=== PATIENT | female | born 1970 | race Caucasian/White ===

== ENCOUNTER 2020-10-03 07:40 | Emergency (ER) | payer SELFPAY ==
[2020-10-03] VITALS (24 sets, daily range): BP systolic 157–216; BP diastolic 81–114; PULSE 66–91; RESP 12–24; TEMP 36.7; O2SAT 95–99
--- NOTE | 2020-10-03 07:30 | RT.EKG_ITS ---
APPROVED REPORT Exam: Resting ECG Patient Location: E HR:86 bpm ECG Measurements Heart Rate 86 AXIS ID 122 P 43 QRSd 92 QRS 21 QT 409 T 39 QTc 490 Conclusion Sinus rhythm normal P axis, V-rate 86. Intraventricular conduction delay inferior leads, non specific t wave changes v6, new vs comparison
--- NOTE | 2020-10-03 07:54 | W.ED.GENAD ---
Discharge Plan Disposition Patient Disposition: HOME Condition: Fair Discharge Details Clinical Impression: Hypertension, Obesity, Stress Primary Care Provider: Unknown,Unknown ED Provider: Regina Rouse Home Meds and New Rx's Prescriptions: New lisinopril 5 mg tablet 5 mg PO DAILY Qty: 30 RF: 0 Continued Mirena 1 EACH intrauterine device 1 ea IU DIRECTED Qty: 1 RF: 0 Discontinued Truvy 1 tab PO BID RF: 0 Discharge Instructions Instructions: How to Stop Smoking (ED), Low Fat Diet (ED), Hypertension (ED) Additional Instructions: Your imaging and blood work was reassuring here today. However, I am quite concerned about your blood pressure. Please begin the lisinopril as prescribed. You are given your one-time dosing here today. Next dose will be due tomorrow morning. Attached is a coupon for lisinopril. I have requested that care management reach out to you to help you establish a primary care provider, insurance and counseling. Please encourage weight loss and smoking cessation. If you develop shortness of breath, difficulty breathing, chest pain, fevers or other new/worsening symptoms please seek care urgently once again. Medical Decision Making Patient is a pleasant 49-year-old female presenting today with 3 months of generally not feeling well. She reports a multitude of complaints. She reports her initial complaint was pain in the posterior left calf. This is improved. She also reports tightness in her chest that is not constantly exertional but more stress related. She does report a large amount of social stressors currently. States that with the onset of stress that she can also experience some numbness in her lips and fingers bilaterally. She is denying any headache. No visual changes. 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 On exam, ronal is morbidly obese. She appears sad and anxious. She has an intact neurologic exam. She has a normal cardiac and respiratory exam. No lower extremity edema or calf tenderness. I am concerned for PE based on patient's history, risk factors and tachycardia. She is a smoker, morbidly obese and hypertensive. She states the HTN is long standing but that she has not had this addressed as she has not seen a PCP in years. I do not see evidence to suggest stroke, her history and exam are not suggestive of posterior CVA. The numbness sounds to be more stress driven, she states it comes on when upset at home and not with exertion. This is most consistent with stress/anxiety. She has xanthelasma but has had cream in her coffee, unable to check cholesterol. BGL WNL. Reviewed information on her weight loss pill, primarily caffeine. I advised she stop this. ECG reviewed by Dr. Randall. NSR, rate of 86. Nonspecific T wave changes in V6 but no acute evidence of ischemia. Labs reviewed, no acute abnormality. Her potassium is slightly low at 3.4. Normal kidney function. FINDINGS: Pulmonary arteries: No evidence of pulmonary embolus to the segmental level. Aorta: No aneurysm of the aorta. No dissection of the aorta. Lungs: Bulla in right middle lobe Pleural space: Unremarkable. No pneumothorax. No pleural effusion. Heart: Unremarkable. No cardiomegaly. No pericardial effusion. Lymph nodes: Unremarkable. No enlarged lymph nodes. Bones/joints: Unremarkable. No acute fracture. Soft tissues: Unremarkable. IMPRESSION: 1. No evidence of pulmonary embolus to the segmental level. 2. No aneurysm of the aorta. 3. No dissection of the aorta. Discussed these findings withasim reilly. Will begin her on low dose Lisinopril as she has long standing HTN. She needs assistance with PCP and insurance. She would also benefit from and is agreeable to counseling. Enoucraged weight loss and smoking cessation. Information on both given to the patient. Advised on safer weight loss options. She was given strict return precautions. She and I discussed health maintenance and my concerns at length. All of her quesitons and concerns were addressed, she is in agreement with this plan. HPI General Mode of arrival: ambulatory. Date/Time Provider Initiated Documentation: 10/03/20 07:54. Limitations to Documentation: no limitations. Information obtained by: patient and RN notes reviewed. HPI Narrative: Patient is a pleasant 49 year old female presenting today with 3 months of not feeling right. She states that her symptoms began with left calf tenderness. She states that she has had a progression of lightheadedness, chest tightness, fatigue. She denies chest pain. Reports exertional SOB but states that this is chronic and unchanged from onset since onset. She reports that one month ago she began a weight loss pill that is all natural, Truvy. She states she can experience nausea with her dizziness. Describes her dizziness as lightheadedness that is near pre-syncope. Has not had a syncopal episode. States worse with stress. Reports she has had increased stress recently. REports that she does not have health insurance. Reports [facility], several months ago her SBP was >200. Denies WINN. She is currently endorsing numb Related Data Home Medications Medication Instructions Recorded Confirmed Mirena 1 ea IU DIRECTED #1 12/13/16 10/03/20 lisinopril 5 mg PO DAILY #30 tab 10/03/20 Previous Rx's Medication Instructions Recorded lisinopril 5 mg PO DAILY #30 tab 10/03/20 Allergies Allergy/AdvReac Type Severity Reaction Status Date / Time amoxicillin AdvReac Mild N/V Unverified 10/03/20 07:50 doxycycline AdvReac Mild N/V Unverified 10/03/20 07:50 General Stated Complaint: GenMedical JOSH: 2 Review of Systems Constitutional Constitutional: Reports as per HPI, Denies chills, Reports fatigue, Denies fever(s), Denies frequent falls, Denies headache(s), Denies snoring and Denies weakness Eyes Eyes: Reports as per HPI, Denies blurry vision and Denies change in vision ENT Ears, Nose, Mouth, and Throat: Denies vertigo, Denies headache(s) and Denies neck pain Cardiovascular Cardiovascular: Reports as per HPI, Denies chest pain (denies pain but reports tightness with stress), Reports lightheadedness, Denies radiating jaw, neck or arm pain, Denies dyspnea and Reports dyspnea on exertion (reports chronic and unchanged) Respiratory Respiratory: Reports as per HPI, Denies chest congestion, Denies cough, Denies dyspnea, Reports dyspnea on exertion (reports chronic and unchanged), Denies snoring, Denies stridor and Denies wheezing Gastrointestinal Gastrointestinal: Reports as per HPI, Denies abdominal pain, Denies change in bowel habits, Denies nausea and Denies vomiting Musculoskeletal Musculoskeletal: Reports as per HPI, Denies back pain, Denies myalgias, Denies muscle cramps, Denies neck pain and Denies numbness Integumentary/Breasts Skin/Breast: Reports as per HPI and Denies rash Neurologic Neurologic: Reports as per HPI, Denies abnormal movements, Denies abnormal speech, Denies behavioral changes, Denies confusion, Denies vertigo, Denies frequent falls, Denies headache(s), Denies localized weakness, Denies numbness, Denies sensory deficit and Denies weakness Psychiatric Psychiatric: Denies behavioral changes and Denies confusion Endocrine Endocrine: Reports fatigue Allergic/Immunologic Allergic/Immunologic: Denies wheezing [facility] Medical History (Updated 10/03/20 @ 10:21 by CLOTILDE Hood) Obesity Rectovaginal fistula Surgical History section Social History Smoking/Tobacco Use Status: Current every day Smoking risk assessment performed?: Yes Alcohol Intake: current Alcohol Intake frequency: holidays/special occasions only Drug use: Never Do you feel safe at home: Yes Do you feel safe in your relationship?: Yes Exam Const General: cooperative, comfortable, no acute distress, well developed and well groomed Nutritional Appearance: well nourished and obese morbidly obese Orientation: alert, awake and oriented x3 HENMT Head: normal to inspection, no palpable skull fracture, normocephalic and atraumatic Ears: hearing grossly normal bilaterally, external ears normal and TM's normal bilaterally General nose exam: external nose normal Mouth: oral mucosae normal and moist mucous membranes Throat: posterior oropharynx normal Eyes General: appearance normal, both eyes and all related structures Alignment and Position: alignment normal Periorbital: periorbital findings normal Eyelids: eyelids normal Sclera: sclerae normal Cornea: corneas normal Pupils: PERRL EOM: EOM intact bilaterally Neck Neck: normal visual inspection, full ROM and no lymphadenopathy Resp Effort & Inspection: normal respiratory effort, able to speak in complete sentences and no respiratory distress Auscultation: clear to auscultation bilaterally, no rales, no rhonchi and no wheezes Cardio Rate: regular rate Rhythm: regular rhythm Heart Sounds: S1 normal and S2 normal GI Inspection: normal to inspection, non-distended and obesity Palpation: soft, no hepatosplenomegaly, not firm, no guarding, not rigid and nontender Percussion: normal to percussion Auscultation: normal bowel sounds Back/Spine/Pelvis Cervical Spine: normal cervical lordosis and cervical ROM normal Skin General skin exam: no rashes or lesions noted Neuro General: patient alert, patient awake and patient oriented x3 Cranial Nerves: CN's II-XI intact bilaterally Cognition: normal cognition Speech: speech normal Gait: normal gait Motor: muscle tone normal throughout, strength 5/5 throughout, no pronator drift, no movement abnormalities noted and no fasciculations Sensory Exam: no sensory deficits noted Coordination: [id number] test normal, [id number] test normal, Romberg test normal, Does not sway with eyes open and rapid alternating movement UE normal Extrem General: normal to inspection, capillary refill normal, no pedal edema and no calf tenderness Psych Appearance: grossly normal and well kempt Mental Status: mental status grossly normal Speech and Movement: speech and movement normal Mood: anxious mood Affect: sad Insight: insight good Judgment: judgment good Course Vital Signs Vital signs: Vital Signs Temperature 36.7 C 10/03/20 07:44 Pulse 91 H 10/03/20 07:44 Respiratory Rate 21 10/03/20 07:44 Blood Pressure 216/114 H 10/03/20 07:44 Pulse Oximetry 97 10/03/20 07:44 Temperature 36.7 C 10/03/20 07:44 Temperature Source Temporal Artery Scan 10/03/20 07:44 Pulse 91 H 10/03/20 07:44 Respiratory Rate 21 10/03/20 07:44 Respiratory Effort Non-Labored 10/03/20 07:48 Blood Pressure 216/114 H 10/03/20 07:44 Blood Pressure Position Supine 10/03/20 07:44 Pulse Oximetry 97 10/03/20 07:44 Oxygen Delivery Method Room Air 10/03/20 07:44 Oxygen Flow Rate 0 10/03/20 07:44 Pain Level 0 10/03/20 07:44
--- NOTE | 2020-10-03 08:15 | DI.CT_ITS ---
EXAM: CT CHEST PE CTA CLINICAL HISTORY: lightheadedness, SOB, left calf pain TECHNIQUE: Omnipaque 350-100 cc. COMPARISON: No exams were available for comparison FINDINGS: There no intraluminal filling defects to suggest acute pulmonary emboli. No evidence of pulmonary in farction. No pleural effusions. Heart size upper normal. There is no pericardial effusion. There is no shift of the interventricula r septum. Thoracic aorta size is normal. No obvious dissection. No pulmonary infiltrates. No pneumothorax. No findings in trachea mainstem bronchi. No bronchiecta sis. There is no significant hilar nor mediastinal adenopathy. Lower most images of this chest study reveal reveal no adrenal masses. Hepatic steatosis noted. No discrete focal hepatic lesions identified. No splenomegaly. Bone windows reveal no lytic osseous lesions. IMPRESSION: No evidence for acute pulmonary emboli nor pulmonary infarction. No pleural effusions. No evidence for aortic dissection. No pericardial effusion. Upper abdominal incidental findings as above. CONTRAST MATERIAL: Intravenous: Omnipaque 350 Contrast volume:100 cc RADIATION DOSE DELIVERED: 753.91mGy.cm Total DLP 753.91mGy.cm Total DLP
[2020-10-03 08:32] LABS: Abs Immature Grans 0.03 10^3/uL (0.0-0.06); Absolute Basophil Count 0.04 10^3/uL (0.0-0.2); Absolute Eosinophil Count 0.24 10^3/uL (0.0-0.7); Absolute Lymphocyte Count 2.29 10^3/uL (1.2-3.4); Absolute Monocyte Count 0.69 10^3/uL (0.1-0.8); Absolute Neutrophil Count 4.58 10^3/uL (1.2-6.7); Basophils % 0.5; HCT 44.2 % (36.0-46.0); HGB 14.8 g/dL (11.2-15.7); Immature Grans % 0.4; Lymphocytes % 29.1; MCHC 33.5 % (32.0-36.0); MCV 92.5 fL (80-95); MPV 10.1 fL (8.0-11.0); Monocytes % 8.8; Neutrophils % 58.2; Nucleated RBC 0 %; Platelet Count 283 10^3/uL (130-400); RBC 4.78 10^6/uL (3.93-5.22); RDW 13.2 % (11.7-14.6); RDW-SD 45.1 fL; WBC 7.87 10^3/uL (4.4-10.8)
[2020-10-03] MEDS: Normal Saline 1,000 ML 250 ML IV (08:52)
[2020-10-03 08:54] LABS: ALT 51 U/L (14-59); AST 23 U/L (15-37); Albumin 3.5 g/dL (3.4-5.0); Alkaline Phosphatase 102 U/L (46-116); Anion Gap 7.4 mmol/L (3-11); BUN 11 mg/dL (7-18); Bilirubin, Total 0.6 mg/dL (0.2-1.0); CO2 29.6 mmol/L (21.0-32.0); CREATININE 0.89 mg/dL (0.55-1.02); Calcium 8.6 mg/dL (8.5-10.1); Chloride 105 mmol/L (98-107); Glucose 101 mg/dL (74-106); Magnesium 2.1 mg/dL (1.8-2.4); Potassium 3.4 mmol/L (3.5-5.1); Sodium 142 mmol/L (136-145); Total Protein 7.4 g/dL (6.4-8.2); Troponin I < 0.05 ng/mL (<0.06)
[2020-10-03] MEDS: Omnipaque 350 MG/ML 100 ML BTL IV (09:38)
[2020-10-03] MEDS: Normal Saline - Diluent 50 ML VIAL IV (09:39)
[2020-10-03 09:41] LABS: Bilirubin Negative (Negative); Blood Negative (Negative); Clarity Clear (Clear); Glucose Negative (Negative); Ketones Negative (Negative); Leukocyte Esterase Negative (Negative); Nitrite Negative (Negative); Urobilinogen 0.2 EU/dL (Up TO 0.2); pH 7.5 (5-8)
[2020-10-03] MEDS: Normal Saline Flush 10 ML SYR IVP (09:41)
--- NOTE | 2020-10-03 09:54 | DI.VRAD_ITS ---
PROCEDURE INFORMATION: Exam: CT Angiography Chest With Contrast Exam date and time: 10/03/2020 8:24 AM Age: 49 years old Clinical indication: Other: Lightheadedness, SOB, left calf pain TECHNIQUE: Imaging protocol: Computed tomographic angiography of the chest with intravenous contrast. 3D rendering (Not supervised by radiologist): MIP and/or 3D reconstructed images were created by the technologist. Radiation optimization: All CT scans at this facility use at least one of these dose optimization techniques: automated exposure control; mA and/or kV adjustment per patient size (includes targeted exams where dose is matched to clinical indication); or iterative reconstruction. Contrast material: OMNIPAQUE 350; Contrast volume: 100 ml; Contrast route: INTRAVENOUS (IV); COMPARISON: No relevant prior studies available. FINDINGS: Pulmonary arteries: No evidence of pulmonary embolus to the segmental level. Aorta: No aneurysm of the aorta. No dissection of the aorta. Lungs: Bulla in right middle lobe Pleural space: Unremarkable. No pneumothorax. No pleural effusion. Heart: Unremarkable. No cardiomegaly. No pericardial effusion. Lymph nodes: Unremarkable. No enlarged lymph nodes. Bones/joints: Unremarkable. No acute fracture. Soft tissues: Unremarkable. IMPRESSION: 1. No evidence of pulmonary embolus to the segmental level. 2. No aneurysm of the aorta. 3. No dissection of the aorta. Dictated and Authenticated by: Gisella Melendez MD. Ordering:KAMERON Tapia MD
--- NOTE | 2020-10-03 10:16 | NUR.NOTE ---
Nursing Note: Referral for PCP and needs insurance given to Care Management. Crystal Herron
[2020-10-03] MEDS: Lisinopril 5 MG TAB PO (10:24)
== END 2020-10-03 10:50 | disposition home or self-care (01) ==
PROVIDERS: Emergency Provider Physician Assistant
DX: I10 Essential (primary) hypertension (principal); E66.01 Morbid (severe) obesity due to excess calories; Z68.42 Body mass index [BMI] 45.0-49.9, adult; R20.2 Paresthesia of skin; F17.210 Nicotine dependence, cigarettes, uncomplicated; F43.9 Reaction to severe stress, unspecified
CPT/HCPCS: 36415; 36416; 71275; 80053; 82962; 93005; 96360; 96361; 99285; 81003; 83735; 84443; 84484; 85025; 93010; J3490

== ENCOUNTER 2020-10-07 08:46 | Emergency (ER) | payer SELFPAY ==
[2020-10-07 08:49] VITALS: BP 187/106; PULSE 79; RESP 17; TEMP 36.4; O2SAT 99
[2020-10-07 08:56] VITALS: RESP 17
--- NOTE | 2020-10-07 09:00 | RT.EKG_ITS ---
APPROVED REPORT Exam: Resting ECG Patient Location: E HR:73 bpm ECG Measurements Heart Rate 73 AXIS NC 123 P 59 QRSd 93 QRS 21 QT 421 T 13 QTc 465 Conclusion Sinus rhythm. Inferior q waves and intraventricular conduction delay, old. Nonspecific t waves changes
--- NOTE | 2020-10-07 09:08 | W.ED.GENAD ---
Discharge Plan Disposition Patient Disposition: HOME Condition: Improving Discharge Details Clinical Impression: Hypertension Primary Care Provider: Richard Burciaga ED Provider: Shubham Randall Home Meds and New Rx's Prescriptions: Continued lisinopril 20 mg tablet 20 mg PO DAILY Qty: 30 RF: 0 Mirena 1 EACH intrauterine device 1 ea IU DIRECTED Qty: 1 RF: 0 Discharge Instructions Instructions: Hypertension (ED) Additional Instructions: See enclosed instructions regarding the DASH diet. Continue Lisinopril as prescribed 20mg daily. Frequent sips of water to maintain hydration. You may use Tylenol and/or ibuprofen as needed for mild headache. Return for any acute concerns. Please follow-up in primary care clinic in 2 weeks for recheck. We will ask care management to make you a follow-up appointment. Your potassium was slightly low and you should liberalize potassium containing foods in the diet such as bananas, strawberries, tree nuts such as cashews or almonds. Medical Decision Making 49-year-old female who was seen in the emergency department on October 03 for longstanding elevated blood pressure with intermittent paresthesias of the fingertips and perioral region. At that time she had been on a weight loss pill containing primarily caffeine. She underwent a work-up including EKG, laboratory tests, CT scan of the chest. She was placed on lisinopril 5 mg and referred for outpatient follow-up which was conducted this morning. Patient reports intermittent high blood pressure, intermittent left-sided and frontal headaches, persistent intermittent numbness of her fingertips and periorbital region. She may have elevated blood pressure in clinic and was referred to the ED. Patient arrives with blood pressure 187/106, pulse 79. Cranial nerves II through XII are intact and she does not have objective dysesthesia, nor weakness or other abnormality. EKG, comprehensive panel and troponin, CT scan of the head obtained. There is no change to EKG. CT scan does not reveal evidence of infarct nor of sinusitis. Labs: Chemistries show potassium 3.2 and she is encouraged to increase dietary sources of potassium. Note of ALT 64. Troponin negative. Patient's blood pressure corrected to 161/94. She is stable and improving. Patient given handout with information on the DASH diet. She will watch processed food and salt intake. She understands she would be best served by losing some weight. Will have her continue the lisinopril at prescribed dose of 20 mg. HPI General Mode of arrival: ambulatory. Date/Time Provider Initiated Documentation: 10/07/20 08:46. Limitations to Documentation: no limitations. Information obtained by: patient. History of Present Illness 49 year old F presents to the emergency department with the chief complaint of Hypertension, numbness of fingertips, intermittent headaches, described as moderate, and is localized to the head. Patient reports no radiation. Patient started experiencing this day(s) and it has been intermittent. No relieving factors improve symptom(s), No exacerbating factors reported . Patient notes headaches; denies confusion, chest pain, cough, fever/chills, shortness of breath, syncope and weakness. Patient did receive the following treatments prior to arrival, other (Took her morning 5 mg lisinopril) Related Data Home Medications Medication Instructions Recorded Confirmed Mirena 1 ea IU DIRECTED #1 12/13/16 10/07/20 lisinopril 20 mg tablet 20 mg PO DAILY #30 tab 10/07/20 10/07/20 Previous Rx's Medication Instructions Recorded lisinopril 20 mg tablet 20 mg PO DAILY #30 tab 10/07/20 Allergies Allergy/AdvReac Type Severity Reaction Status Date / Time amoxicillin AdvReac Mild N/V Verified 10/07/20 08:55 doxycycline AdvReac Mild N/V Verified 10/07/20 08:55 General Stated Complaint: GenMedical JOSH: 3 Review of Systems Narrative: Denies chest pain, shortness of breath, syncope. No weakness or clumsiness. No difficulty with speech or gait. No facial droop. Weeks of intermittent tingling to her perioral area and fingertips. 8 systems reviewed and otherwise negative [facility] Medical History Obesity Rectovaginal fistula Surgical History section Social History Smoking/Tobacco Use Status: Current every day Tobacco Type: cigarettes Smoking risk assessment performed?: Yes Alcohol Intake: current Alcohol Intake frequency: holidays/special occasions only Drug use: Never Do you feel safe at home: Yes Do you feel safe in your relationship?: Yes Exam Narrative Exam Narrative: GEN: awake, alert, oriented 3. Pleasant, well groomed, interactive. HEAD: Normocephalic, atraumatic ENT: Mucous membranes moist, oropharynx unremarkable, perioral sensation symmetric and intact. External ear exam unremarkable EYES: PERRL, EOMI NECK: Full ROM, no JENNIFFER, no menigismus CHEST/RESP: Nontender, clear to auscultation bilateral, no wheeze/rhonchi/rales CARDIOVASCULAR: RRR, no murmur, rub baltazar. 2+ Rad pulse bilateral ABDOMEN: Soft, nontender, no mass. +Bowel sounds EXT: Full ROM, no edema, no rash Neuro: Grossly normal neurologic exam, conversant, interactive. Cranial nerves II through XII intact. Visual rodriguez intact to confrontation. No facial droop or anesthesia knee, motor 5 out of 5 throughout Psych: Speech fluent, thoughts congruent, affect normal Course Vital Signs Vital signs: Vital Signs Temperature 36.4 C L 10/07/20 08:49 Pulse 79 10/07/20 08:49 Respiratory Rate 17 10/07/20 08:49 Blood Pressure 187/106 H 10/07/20 08:49 Pulse Oximetry 99 10/07/20 08:49 Temperature 36.4 C L 10/07/20 08:49 Temperature Source Temporal Artery Scan 10/07/20 08:49 Pulse 79 10/07/20 08:49 Respiratory Rate 17 10/07/20 08:56 Respiratory Effort Non-Labored 10/07/20 08:56 Respiratory Depth Normal 10/07/20 08:56 Respiratory Pattern Normal 10/07/20 08:56 Blood Pressure 187/106 H 10/07/20 08:49 Blood Pressure Position Sitting 10/07/20 08:49 Pulse Oximetry 99 10/07/20 08:49 Oxygen Delivery Method Room Air 10/07/20 08:49 Oxygen Flow Rate 0 10/07/20 08:49 Pain Level 3 10/07/20 08:49
[2020-10-07] MEDS: Lisinopril 10 MG TAB PO (09:12)
--- NOTE | 2020-10-07 09:38 | DI.CT_ITS ---
EXAM: CT HEAD WO CLINICAL HISTORY: hypertension, numbness fingertips. TECHNIQUE: Imaging Protocol: Axial computed tomography images with coronal and sagittal reformatted images were created and reviewed COMPARISON: No exams were available for comparison FINDINGS: There are no skull fractures nor fluid the visualized paranasal sinuses and mastoid air cells. No evidence of intracranial hemorrhage, mass effect, or shift of midline structures. There are no ex tra-axial fluid collections. Ventricles are not enlarged or shifted and there is no blood within the ventricular system nor within the basal cisterns. IMPRESSION: No acute intracranial findings on this noninfused CT scan of the brain. RADIATION DOSE DELIVERED: 737.72mGy.cm Total DLP DATA REPOSITORY: All CT scans at this facility are submitted to the National Radiology Data Registry (NRDR) Dose Index Registry (DIR) with the [employer] ([employer]). RADIATION OPTIMIZATION: All CT scans at this facility use at least one of these dose optimization te chniques: automated exposure control; mA and/or kV adjustment per patient size (includes targeted exa ms where dose is matched to clinical indication); or iterative reconstruction.
[2020-10-07] MEDS: Acetaminophen 500 MG TAB 1000 MG PO (09:40)
[2020-10-07 09:51] LABS: ALT 64 U/L (14-59); AST 31 U/L (15-37); Albumin 3.7 g/dL (3.4-5.0); Alkaline Phosphatase 117 U/L (46-116); Anion Gap 7.8 mmol/L (3-11); BUN 11 mg/dL (7-18); Bilirubin, Total 0.7 mg/dL (0.2-1.0); CO2 29.2 mmol/L (21.0-32.0); CREATININE 0.94 mg/dL (0.55-1.02); Calcium 8.9 mg/dL (8.5-10.1); Chloride 104 mmol/L (98-107); Glucose 87 mg/dL (74-106); Potassium 3.2 mmol/L (3.5-5.1); Sodium 141 mmol/L (136-145); Total Protein 7.9 g/dL (6.4-8.2)
[2020-10-07 10:01] LABS: Troponin I < 0.05 ng/mL (<0.06)
[2020-10-07 10:02] VITALS: BP 161/94; PULSE 76; RESP 17; O2SAT 99
--- NOTE | 2020-10-07 12:13 | NUR.NOTE ---
Nursing Note: Referral faxed to PCP for follow up. Crystal Herron
== END 2020-10-07 10:13 | disposition home or self-care (01) ==
PROVIDERS: Emergency Provider Emergency Medicine; PCP Nurse Practitioner Family
DX: I10 Essential (primary) hypertension (principal); R51.9 Headache, unspecified; R20.2 Paresthesia of skin; E87.6 Hypokalemia
CPT/HCPCS: 36415; 80053; 93005; 99285; 70450; 84484; 93010; 99284

== ENCOUNTER 2020-10-07 18:42 | Emergency (ER) | payer SELFPAY ==
[2020-10-07 18:47] VITALS: BP 186/104; PULSE 100; RESP 16; TEMP 36.3; O2SAT 99
[2020-10-07 18:55] VITALS: BP 165/105
[2020-10-07 19:19] VITALS: BP 168/78
--- NOTE | 2020-10-07 19:28 | W.ED.GENAD ---
Discharge Plan Disposition Patient Disposition: HOME Discharge Details Clinical Impression: Hypertension Primary Care Provider: Richard Burciaga ED Provider: Madhu Skinner Home Meds and New Rx's Prescriptions: Continued lisinopril 20 mg tablet 20 mg PO DAILY Qty: 30 RF: 0 Mirena 1 EACH intrauterine device 1 ea IU DIRECTED Qty: 1 RF: 0 Discharge Instructions Instructions: Hypertension (ED) Medical Decision Making 49-year-old female presents having recently been diagnosed with hypertension, home blood pressure cuff today that she thought read 224/114, her friend who is an RN told her to come to the ER. Upon presentation to the ER she is slightly anxious and admits that she is frustrated because this is now her third visit to the ER and she saw her primary care provider today. She reports a mild global headache which she has had for the past few days but denies any visual changes, chest pain, shortness of breath. I was able to review her most recent visits, she had a thorough cardiac work-up which also included chest CTA and head CT. Patient tells me from the get go that she really does not want to be here and she does not want to have another large work-up. Her initial blood pressure was 186/104 however she certainly does seem slightly anxious and frustrated. Her next blood pressure was 165/105. Triage heart rate was 100 however during her ER stay was primarily in the 70s and 80s. She brought her blood pressure cuff with her, I asked her to take as a box, set it up as she normally would, and take her blood pressure. She did this on her left arm and her blood pressure was 224/126. Patient was observed in the ER for over an hour had both manual and monitored blood pressure checks. The initial reading of 186/104 was the highest the we saw here in the ER, it went as low as 153/76. This is nowhere near her home reading or the reading here in the ER that she used with her own cuff. Patient is obese, I question if cuff fits her arm well, and I do not believe that the readings are accurate. We had a long discussion regarding blood pressure and our goals. She has likely had blood pressure for quite some time and dropping her blood pressure too dramatically in a short period time can be dangerous. Instead we want to lower her blood pressure in a safe manner and this may take weeks it may take either increasing her medication or adding on a secondary medication. I explained to her that I would rather treat her as a patient and her symptoms as opposed to simply treating a number. Patient is no longer anxious or frustrated. Again, her blood pressure is down to 153/76. I see no clear indication for emergent laboratory values or repeat imaging as she has had an extremely thorough work-up during her last 2 ER visits. She will take her 20 mg of lisinopril tomorrow for the first time. She will by another blood pressure cuff, possibly a radial cuff, and see if these are more accurate. She will keep a log of these pressures and bring them to her primary care provider on Sunday when she sees them as already scheduled. Otherwise she will watch for new or worsening symptoms and return to the ER for any concerns. Upon discharge patient has no additional questions or concerns and is very comfortable with this disposition. I did discuss her presentation and disposition with Dr. Randall who personally saw her earlier today. She felt as though this was reasonable as well. Medical Records Medical records reviewed: Yes I reviewed the patient's medical records. HPI General Mode of arrival: ambulatory. Date/Time Provider Initiated Documentation: 10/07/20 18:43. Limitations to Documentation: no limitations. Information obtained by: patient. HPI Narrative: This is a 49-year-old female who has a past medical history of obesity, current smoker, new diagnosis of hypertension. She states that a few days ago she had tingling in both of her arms, hand, headache, subsequently noted that her blood pressure was elevated and was seen in the ER. Had a thorough work-up and subsequently discharged home on the 5 mg lisinopril. Establish a new primary care provider this morning, and during that evaluation blood pressure noted to be elevated, directed to return to the ER. Again had a thorough work-up and subsequently discharged. She had her overall lisinopril dose increased from 5mg to 20 mg but today only had a total of 15. She states that she has continued to have a mild dull global headache and tingling in both of her hands. This is not really changed. She bought a blood pressure cuff from the pharmacy today, was unsure how to use the machine, was having her son help her and she was on a televideo with her friend who is an RN. Blood pressure at home was noted to be 220 something over 120 something, again recommended to go into the ER. During this time she denies her headache being any worse than it has been over the past several days. She denies visual changes, chest pain, pressure, shortness of breath or tingling in her face. She does still have mild tingling in both of her hands. She has no back pain, difficulty with bowel or bladder function. Related Data Home Medications Medication Instructions Recorded Confirmed Mirena 1 ea IU DIRECTED #1 12/13/16 10/07/20 lisinopril 20 mg tablet 20 mg PO DAILY #30 tab 10/07/20 10/07/20 Previous Rx's Medication Instructions Recorded lisinopril 20 mg tablet 20 mg PO DAILY #30 tab 10/07/20 Allergies Allergy/AdvReac Type Severity Reaction Status Date / Time amoxicillin AdvReac Mild N/V Verified 10/07/20 18:50 doxycycline AdvReac Mild N/V Verified 10/07/20 18:50 General Stated Complaint: GenMedical JOSH: 3 Review of Systems Constitutional Constitutional: Denies fatigue, Denies fever(s), Reports headache(s) and Denies weakness Eyes Eyes: Denies change in vision ENT Ears, Nose, Mouth, and Throat: Denies dizziness, Reports headache(s) and Denies neck pain Cardiovascular Cardiovascular: Denies chest pain and Denies dyspnea Respiratory Respiratory: Denies cough and Denies dyspnea Gastrointestinal Gastrointestinal: Denies abdominal pain, Denies nausea and Denies vomiting Musculoskeletal Musculoskeletal: Denies back pain, Denies neck pain, Denies numbness and Reports tingling Integumentary/Breasts Skin/Breast: Denies rash Neurologic Neurologic: Denies dizziness, Reports headache(s), Denies numbness, Reports tingling and Denies weakness Endocrine Endocrine: Denies fatigue [facility] Medical History Obesity Rectovaginal fistula Surgical History section Social History Smoking/Tobacco Use Status: Current every day Tobacco Type: cigarettes Smoking risk assessment performed?: Yes Alcohol Intake: current Alcohol Intake frequency: holidays/special occasions only Drug use: Never Do you feel safe at home: Yes Do you feel safe in your relationship?: Yes Exam Const General: cooperative, healthy appearing, comfortable, no acute distress and anxious Orientation: alert, awake and oriented x3 HENMT Head: normal to inspection, normocephalic and atraumatic Eyes General: appearance normal, both eyes and all related structures Eyelids: eyelids normal Conjunctivae: conjunctivae normal Neck Neck: normal visual inspection, full ROM, trachea midline and supple Resp Effort & Inspection: normal respiratory effort and able to speak in complete sentences Auscultation: clear to auscultation bilaterally Cardio Rate: regular rate Rhythm: regular rhythm GI Inspection: obesity Palpation: soft and nontender Back/Spine/Pelvis Back: No back tenderness Skin General skin exam: no rashes or lesions noted Neuro General: patient alert, patient awake, patient oriented x3, moves all extremities and no focal motor deficits Cognition: normal cognition Speech: speech normal Gait: normal gait Motor: muscle tone normal throughout Sensory Exam: no sensory deficits noted Extrem General: normal to inspection, full ROM, capillary refill normal, no pedal edema and no calf tenderness Psych Appearance: grossly normal Mental Status: mental status grossly normal Affect: anxious affect Course Vital Signs Vital signs: Vital Signs Temperature 36.3 C L 10/07/20 18:47 Pulse 100 H 10/07/20 18:47 Respiratory Rate 16 10/07/20 18:47 Blood Pressure 186/104 H 10/07/20 18:47 Pulse Oximetry 99 10/07/20 18:47 Temperature 36.3 C L 10/07/20 18:47 Temperature Source Skin 10/07/20 18:47 Pulse 100 H 10/07/20 18:47 Respiratory Rate 16 10/07/20 18:47 Respiratory Effort Non-Labored 10/07/20 18:56 Blood Pressure 168/78 H 10/07/20 19:19 Blood Pressure Position Sitting 10/07/20 18:47 Pulse Oximetry 99 10/07/20 18:47 Oxygen Delivery Method Room Air 10/07/20 18:47 Oxygen Flow Rate 0 10/07/20 18:47 Pain Level 3 10/07/20 18:47 Comment 10/07/20 18:47
[2020-10-07 19:33] VITALS: BP 163/86
[2020-10-07 19:49] VITALS: BP 153/76
== END 2020-10-07 19:50 | disposition home or self-care (01) ==
LOC: ER 20:00
PROVIDERS: Emergency Provider Physician Assistant; PCP Nurse Practitioner Family
DX: I10 Essential (primary) hypertension (principal); F41.9 Anxiety disorder, unspecified
CPT/HCPCS: 99283

== ENCOUNTER → 2020-10-19 02:36 | Outpatient (CLI) | payer SELFPAY ==
[2020-10-19 08:46] LABS: Calculated LDL 113 mg/dL (<100); Cholesterol 173 mg/dL (<200); HDL Cholesterol 48 mg/dL (40-60); Triglyceride 60 mg/dL (<150)
[2020-10-19 08:49] LABS: Hemoglobin A1C 5.3 % (<5.7)
== END ==
PROVIDERS: PCP Nurse Practitioner Family; Visit Provider Nurse Practitioner Family
DX: Z13.220 Encounter for screening for lipoid disorders (principal); Z13.1 Encounter for screening for diabetes mellitus
CPT/HCPCS: 36415; 80061; 83036

== ENCOUNTER 2021-11-23 14:57 | Outpatient (REF) | payer SELFPAY ==
--- NOTE | 2021-11-23 14:25 | PAPFT_PTH ---
PATIENT: Neris Anderson LOC: [facility] U#:[id number] AGE/SX: 50/F ROOM: RE11/23/[address]: Glory Suresh NP : 1970 BED: DIS: 11/23/2021 SPEC #: [id number] RECD: 11/23/21 18:03 STATUS: DARIUS LUIS #: [id number] KANDIS: 11/23/21 14:[address]: Glory Suresh NP DEPT: REPLACED BY [facility] Cytology RECD BY: Priya Faye ENTERED: 11/23/21 18:03 SP TYPE: PAPFT OTHR DR: Richard Burciaga NP Tissues: 1 - CX/ENDOCX FOR PAP SMEARS Procedures: PAP THIN PREP/UVM Screening HPV DNA PROBE Comments: [id number] (CHLAMYDIA/GC)
[2021-11-24 16:38] LABS: Chlamydia Result Negative (Negative); GC Result Negative (Negative)
== END 2021-11-23 14:58 | disposition home or self-care (01) ==
LOC: LBN 14:57
PROVIDERS: PCP Nurse Practitioner Family; Visit Provider Nurse Practitioner Women's Health
DX: Z11.3 Encounter for screening for infections with a predominantly sexual mode of transmission (principal); Z12.4 Encounter for screening for malignant neoplasm of cervix; Z11.51 Encounter for screening for human papillomavirus (HPV)
CPT/HCPCS: 87491; 87591; 88142; 87624

== ENCOUNTER 2021-12-12 16:15 | Outpatient (CLI) | payer SELFPAY ==
--- NOTE | 2021-12-12 16:15 | RT.EKG_ITS ---
APPROVED REPORT Exam: Resting ECG Reason for Exam: chest discomfort Patient Location: O HR:76 bpm ECG Measurements Heart Rate 76 AXIS RI 127 P 56 QRSd 115 QRS 54 QT 435 T 14 QTc 489 Conclusion Sinus rhythm...normal P axis, V-rate 60- 99 Baseline artifact Otherwise probably within normal limits
== END 2021-12-12 16:16 | disposition home or self-care (01) ==
LOC: DI.CM 16:16
PROVIDERS: PCP Nurse Practitioner Family; Visit Provider Nurse Practitioner Family
DX: R07.89 Other chest pain (principal)
CPT/HCPCS: 93010

== ENCOUNTER 2021-12-12 17:03 | Outpatient (REF) | payer SELFPAY ==
[2021-12-12 18:48] LABS: ALT 54 U/L (14-59); AST 27 U/L (15-37); Albumin 3.4 g/dL (3.4-5.0); Alkaline Phosphatase 125 U/L (46-116); Anion Gap 10.1 mmol/L (3-11); BUN 18 mg/dL (7-18); Bilirubin, Total 0.3 mg/dL (0.2-1.0); CO2 29.9 mmol/L (21.0-32.0); CREATININE 0.9 mg/dL (0.55-1.02); Calcium 8.9 mg/dL (8.5-10.1); Chloride 103 mmol/L (98-107); Glucose 79 mg/dL (74-106); Potassium 3.3 mmol/L (3.5-5.1); Sodium 143 mmol/L (136-145); Total Protein 7.1 g/dL (6.4-8.2)
== END 2021-12-12 17:04 | disposition home or self-care (01) ==
LOC: NCHCN 17:03
PROVIDERS: PCP Nurse Practitioner Family; Visit Provider Nurse Practitioner Family
DX: R60.0 Localized edema (principal)
CPT/HCPCS: 80053

== ENCOUNTER 2021-12-15 08:03 | Emergency (ER) | payer SELFPAY ==
[2021-12-15] VITALS (35 sets, daily range): BP systolic 105–135; BP diastolic 50–93; PULSE 66–95; RESP 14–38; TEMP 36.7; O2SAT 95–100
--- NOTE | 2021-12-15 08:00 | RT.EKG_ITS ---
APPROVED REPORT Exam: Resting ECG Reason for Exam: sob Patient Location: E HR:88 bpm ECG Measurements Heart Rate 88 AXIS OK 137 P 45 QRSd 97 QRS 56 QT 388 T 20 QTc 471 Conclusion Sinus rhythm...normal P axis, V-rate 60- 99 Inferior infarct, old...Q >35mS, II III aVF Physician: no stemi, unchanged from EKG on 10/07/20 I have reviewed and interpreted ECG and agree with software generated interpretation.
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
[2021-12-15 08:45] LABS: Source Nasal/Nares
[2021-12-15 08:48] LABS: Abs Immature Grans 0.03 10^3/uL (0.0-0.06); Absolute Basophil Count 0.04 10^3/uL (0.0-0.2); Absolute Eosinophil Count 0.24 10^3/uL (0.0-0.7); Absolute Lymphocyte Count 3.03 10^3/uL (1.2-3.4); Absolute Monocyte Count 0.69 10^3/uL (0.1-0.8); Absolute Neutrophil Count 5.04 10^3/uL (1.2-6.7); Basophils % 0.4; Eosinophils % 2.6; HCT 44.6 % (36.0-46.0); HGB 14.6 g/dL (11.2-15.7); Immature Grans % 0.3; Lymphocytes % 33.4; MCH 29.9 pg (27.0-33.0); MCHC 32.7 % (32.0-36.0); MCV 91.4 fL (80-95); MPV 10.5 fL (8.0-11.0); Monocytes % 7.6; Neutrophils % 55.7; Nucleated RBC 0 %; Platelet Count 344 10^3/uL (130-400); RBC 4.88 10^6/uL (3.93-5.22); RDW 12.9 % (11.7-14.6); RDW-SD 43.8 fL; WBC 9.07 10^3/uL (4.4-10.8)
[2021-12-15 08:59] LABS: Bilirubin Negative (Negative); Blood Negative (Negative); Clarity Clear (Clear); Glucose Negative (Negative); Ketones Negative (Negative); Leukocyte Esterase Negative (Negative); Nitrite Negative (Negative); Urobilinogen 0.2 EU/dL (Up TO 0.2); pH 7.5 (5-8)
[2021-12-15 09:05] LABS: ALT 51 U/L (14-59); AST 27 U/L (15-37); Albumin 3.6 g/dL (3.4-5.0); Alkaline Phosphatase 129 U/L (46-116); Anion Gap 9.5 mmol/L (3-11); BUN 16 mg/dL (7-18); Bilirubin, Total 0.6 mg/dL (0.2-1.0); CO2 31.5 mmol/L (21.0-32.0); Calcium 9.2 mg/dL (8.5-10.1); Chloride 101 mmol/L (98-107); Estimated GFR 58.69 (mL/min/1.73m2); Glucose 101 mg/dL (74-106); NT-proBNP 192 pg/mL (<300); Sodium 142 mmol/L (136-145); Total Protein 8.6 g/dL (6.4-8.2); Troponin I < 50 ng/L (<or=60)
[2021-12-15 09:06] LABS: Potassium 2.9 mmol/L (3.5-5.1)
--- NOTE | 2021-12-15 09:15 | DI.CT_ITS ---
Exam(s) CT CHEST PE CTA EXAM: CT CHEST PE CTA CLINICAL HISTORY: Shortness of breath. TECHNIQUE: Imaging Protocol: CT angiography of the chest was performed using pulmonary embolus mateus col. Multi planar reconstructions were performed. CONTRAST MATERIAL: Intravenous: Omnipaque 350 Contrast volume: 100 cc COMPARISON: CT CT CHEST PE CTA from 10/03/2020 FINDINGS: CHEST: PULMONARY ARTERIES: There are no intraluminal filling defects to suggest acute pulmonary emboli. LUNGS: There are no infiltrates nor evidence of pulmonary infarction.. There are no pleural effusions . MEDIASTINUM: There is no hilar nor mediastinal adenopathy. Visualized thyroid unremarkable. CARDIAC: Heart size is upper normal. There is no pericardial effusion.Caliber of the thoracic aorta is within normal limits. There is no significant shift of the interventricular septum. PARTIALLY VISUALIZED UPPERMOST ABDOMEN: Hiatal hernia. Hepatic steatosis. OSSEOUS: No significant osseous lesions.. IMPRESSION: 1. No evidence of acute pulmonary emboli. No evidence of pulmonary infarction. No infiltrates. No pleural effusions. 2. No intrathoracic adenopathy 3. Hepatic steatosis again noted. Also hiatal hernia. RADIATION DOSE DELIVERED: 792.98mGy.cm Total DLP DATA REPOSITORY: All CT scans at this facility are submitted to the National Radiology Data Registry (NRDR) Dose Index Registry (DIR) with the [employer] (A[employer]). RADIATION OPTIMIZATION: All CT scans at this facility use at least one of these dose optimization te chniques: automated exposure control; mA and/or kV adjustment per patient size (includes targeted exa ms where dose is matched to clinical indication); or iterative reconstruction.
[2021-12-15 09:18] LABS: D-Dimer 661 ng/mlFEU (<500)
[2021-12-15] MEDS: Potassium Chloride 20 MEQ TABCR 40 MEQ PO (09:25)
[2021-12-15] MEDS: POTASSIUM CHLORIDE 10 MEQ/100 ML BAG 100 MEQ IVPB ×2 (09:27→10:35)
[2021-12-15] MEDS: Normal Saline 1,000 ML 100 ML IV (09:30)
--- NOTE | 2021-12-15 10:00 | DI.US_ITS ---
APPROVED REPORT EXAM: Comprehensive 2D, Doppler, and color-flow Echocardiogram Patient Location: ER Room/Bed: 2 Modeling And Simulation Analyst: Lillian Acosta RDCS (AE) Indications: Shortness of breath, Edema, Chest pain Other Information Study Quality: Poor. Technically limited study due to body habitus, inability to position patient exa m done bedside er supine. Conclusion Technically difficult and suboptimal study The left ventricle appears grossly normal in size wall thickness and systolic function The right ventricle appears moderately dilated. Right ventricular systolic function cannot be accura tely assessed The left atrium is normal in size The right atrium was not well visualized Within the limits of the study there were no apparent valvular abnormalities Mildly dilated ascending aorta Wall motion Left Ventricle The left ventricle is normal size. The overall left ventricular systolic function appears normal. The re is normal left ventricular wall thickness. There is no ventricular septal defect visualized. LVEF is 58%. Right Ventricle Right ventricle appears moderately dilated Right ventricular systolic function could not be assessed. Atria The left atrium size is normal. Right atrium is not well visualized. The interatrial septum is intact with no evidence for an atrial septal defect. Aortic Valve Aortic valve is probably trileaflet. Aortic valve is grossly normal in structure. There is no aortic valvular stenosis. No aortic regurgitation is present. Mitral Valve The mitral valve is normal in structure. No evidence of mitral valve stenosis. Trace mitral regurgita tion. Tricuspid Valve The tricuspid valve is normal in structure. There is no tricuspid valve stenosis. Trace tricuspid reg urgitation. Unable to assess PA pressure. Pulmonic Valve Pulmonic valve is not well visualized. There is no pulmonic valvular stenosis. There is no pulmonic v alvular regurgitation. Great Vessels The aortic root is normal in size. The ascending aorta is mildly dilated. Ascending aorta is not well visualized. IVC is normal in size and collapses >50% with inspiration. Pericardium There is no pericardial effusion. 2D Dimensions IVSD d PLAX 0.96 cm F: 0.6-1.0 LVPW d PLAX 0.98 cm F: 0.6 - 1.0 LVID d PLAX 4.67 cm F: 3.8 - 5.2 LVDs 3.20 cm F: 2.2 - 3.5 Ao Root d 3.19 cm F: 2.7 - 3.3 Ao Asc Diam d 3.75 cm F: 2.3 - 3.1 LV EF Darronichholadeel 58.8 % FS 31.05 % LV Diastology MV E' medial 0.083 (>0.07 m/s) E/A Ratio 0.9 LV E/e MED 8.25 (<14) MV E Vmax 0.69 (0.4-1.3 m/s) MV E' lateral 0.093 (>0.1 m/s) MV A Vmax 0.75 (0.4-1.3 m/s) LV E/e LAT 7.40 (<14) MV E/A Ratio 0.88 MV E/E' medial 8.27 MV E/E' lateral 7.40 Aortic Valve LVOT Area 3.85 cm2 AoV Area Vmax 3.29 cm2 LVOT Vmax 1.10 m/s AoV Area/ BSA (Vmax) 1.40 cm2/m2 LVOT Mean Gonzalo. 0.69 m/s COLBY Mean Gonzalo. 2.75 cm2 LVOT Peak Grad 4.8 mmHg COLBY Mean Gonzalo. Index 1.16 cm2/m2 LVOT Mean Grad 2.2 mmHg LVOT VTI 0.207 m LVOT Diam s 2.20 cm AoV Vmax 1.28 m/s Velocity Ratio 0.85 AoV Mean Gonzalo. 0.96 m/s AoV Peak Grad 6.6 mmHg LVOT SV 79.84 mL AoV Mean Grad 4.0 mmHg AoV VTI 0.266 m AoV Area VTI 3.00 cm2 AoV Area/ BSA (VTI) 1.27 cm/m2 Mitral Valve MV DT 203 (160-240 msec) MV PHT 59 msec MV Area PHT 3.74 cm2 MV VTI 0.220 m MV Area VTI 3.63 (4.0-6.0 cm2) Pulmonary Valve PV Vmax 1.02 (0.5-1.5 m/s) RVOT Peak Gr. 3.08 mmHg PV Peak Grad 4.2 mmHg RVOT Mean Gr. 1.50 mmHg PV Mean Grad 2.4 mmHg RVOT VTI 0.150 m PV VTI 0.200 m RVOT Vmax 0.88 m/s
[2021-12-15 10:24] LABS: COVID-19 PCR Negative (Negative)
--- NOTE | 2021-12-15 10:58 | NUR.NOTE ---
Nursing Note: Pt to radiology via stretcher w/tech, pt w/o complaints, IVF & IV K+ suspended while in DI.
[2021-12-15] MEDS: Omnipaque 350 MG/ML 100 ML BTL IJ (11:14)
--- NOTE | 2021-12-15 11:39 | NUR.NOTE ---
Nursing Note: Pt now having ECHO done in room, denies new complaints, NAD noted, cont. to monitor.
[2021-12-15 11:41] LABS: Troponin I < 50 ng/L (<or=60)
--- NOTE | 2021-12-15 12:07 | NUR.NOTE ---
Nursing Note: Echo complete, IV K+ complete, NAD noted, cont. to monitor.
== END 2021-12-15 13:29 | disposition home or self-care (01) ==
PROVIDERS: Emergency Provider Nurse Practitioner Family; PCP Nurse Practitioner Family
DX: R06.09 Other forms of dyspnea (principal); R06.02 Shortness of breath; E87.6 Hypokalemia; R60.9 Edema, unspecified; R07.9 Chest pain, unspecified; Z20.822 Contact with and (suspected) exposure to COVID-19
CPT/HCPCS: 36415; 71275; 80053; 87635; 93005; 96365; 96366; 99284; 99285; 81003; 83735; 83880; 84484; 85025; 85379; 93010; 93306; J3480; J3490

== ENCOUNTER → 2021-12-26 01:15 | Outpatient (CLI) | payer SELFPAY | PROVIDERS: PCP Nurse Practitioner Family; Visit Provider Nurse Practitioner Family ==

== ENCOUNTER → 2022-05-25 00:06 | Outpatient (CLI) | payer SELFPAY ==
--- NOTE | 2022-05-25 07:00 | DI.NM_ITS ---
APPROVED REPORT Exam: Pharmacologic Patient Location: Out-Patient Room/Bed: Stress Nurse: Dayanara Polo RN Ordering Provider:CARLITOS THOMAS, Contact Number: [phone] BMI: 53.03 Baseline Rhythm: Sinus Rhythm Indications: ABREU w/ chest pain Medical History Medical History: Obesity, HTN, Tobacco use, anxiety Cardiac Medications: Amlodipine, Losartan/HVTZ, Torsemide Allergies: Amoxicillin, Doxycycline Cardiac Risk Factors: Family history, HTN, smoking, obesity Previous Cardiac Procedures: None Pretest Chest Pain Characteristics: None Exercise History: Sedentary Physical Disabilities: None Lung Sounds: Diminished throughout Heart Sounds: S1/S2, regular Stress Test Details Test: Pharmacologic stress was paired with low level exercise., Exercise stress converted to pharmac ologic stress due to failure to obtain a diagnostic stress test. Reason for pharmacologic stress test: changed from exercise stress test due to inability to reach t arget heart rate. Nuclear Acquisition: Rest Tc-99m/Stress Tc-99m 1 day Rest Isotope: Tc-99m Sestamibi. Dose: 14 Date: 05/25/2022 Injection Time: 0830 Stress Isotope: Tc-99m Sestamibi. Dose: 46 Date: 05/25/2022 Injection Time: 1035 HR Resting HR Supine: 61 bpm Max Heart Rate (APMHR): 169.640656 bpm Resting HR Standin bpm Target HR (85% APMHR): 143.566829 bpm Max HR Achieved: 129 bpm % of APMHR: 76.33 Recovery HR: 98 bpm BP Resting BP Supine: 130/92 mmHg Resting BP Standin/96 mmHg Max BP: 176/78 mmHg Recovery BP: 134/60 mmHg ECG Resting ECG: Sinus Rhythm Ectopy: None Stress ECG: Sinus Tachycardia ST Change: No significant ST segment changes noted Arrhythmia: VPC's Comment: Rare PVC's, 6 beats of bigeminal PVC pattern Recovery ECG: Sinus Rhythm Recovery ST Change: No significant ST segment changes noted Recovery Arrhythmia: None Clinical Reason for Termination: Dyspnea Stress Symptoms: Dyspnea Exercise duration: 2 min57 sec Highest Stage Reached: Stage 1: 1.7 mph at 10% grade. Exercise capacity: 4.64 METs Rate Pressure Product: 11860 Stress ECG Conclusion 1. Resting electrocardiogram showed minor nondiagnostic ST abnormalities 2. Patient underwent testing using combination of low-level exercise and pharmacologic stress 3. Peak heart rate achieved was 76% of predicted for age 4. Maximal workload was 4.64 METS 5. Electrocardiographic portion of the test was nondiagnostic due to inadequate heart rate 6. See MPI report Stress Test Summary STAGE Time (mins) Speed (mph) Grade (%) HR BP SpO2 SYMPTOMS METS Supine 61 130/92 Standing 75 142/96 1 3 1.7 10 125 91% Shortness of breath 4.5 1 min post Lexiscan injection 124 156/88 89% 3 min post Lexiscan injection 115 176/78 6 min post Lexiscan injection 98 134/60 96% Shortness of breath resolved. MPI Conclusion Myocardial perfusion is normal without evidence of ischemia or prior infarction EF 59%, normal wall motion Radiologist Interpretation Radiologist agrees with Material Dispatcher's Interpretation. Radiologist Interpretation by: Osmar Norris MD Interpretation Date/Time: 05/25/2022 15:52:24
[2022-05-25] MEDS: Regadenoson 0.4 MG/5 ML SYR IVP (11:04)
== END ==
PROVIDERS: PCP Nurse Practitioner Family; Visit Provider Nurse Practitioner Family
DX: R06.00 Dyspnea, unspecified (principal)
CPT/HCPCS: 78452; 93017; J2785

== ENCOUNTER 2023-01-16 12:14 | Outpatient (CLI) | payer SELFPAY ==
[2023-01-16 11:53] LABS: Abs Immature Grans 0.03 10^3/uL (0.0-0.06); Absolute Basophil Count 0.04 10^3/uL (0.0-0.2); Absolute Eosinophil Count 0.25 10^3/uL (0.0-0.7); Absolute Lymphocyte Count 3.49 10^3/uL (1.2-3.4); Absolute Monocyte Count 0.71 10^3/uL (0.1-0.8); Absolute Neutrophil Count 5.14 10^3/uL (1.2-6.7); Basophils % 0.4; Eosinophils % 2.6; HCT 43.4 % (36.0-46.0); HGB 14.3 g/dL (11.2-15.7); Immature Grans % 0.3; Lymphocytes % 36.1; MCHC 32.9 % (32.0-36.0); MCV 94 fL (80-95); MPV 10.1 fL (8.0-11.0); Monocytes % 7.3; Neutrophils % 53.3; Platelet Count 314 10^3/uL (130-400); RBC 4.62 10^6/uL (3.93-5.22); RDW 13.6 % (11.7-14.6); RDW-SD 46.5 fL; WBC 9.66 10^3/uL (4.4-10.8)
[2023-01-16 12:07] LABS: ALT 67 U/L (14-59); AST 32 U/L (15-37); Albumin 3.5 g/dL (3.4-5.0); Alkaline Phosphatase 120 U/L (46-116); Anion Gap 11.4 mmol/L (3-11); BUN 22 mg/dL (7-18); Bilirubin, Total 0.4 mg/dL (0.2-1.0); CO2 29.6 mmol/L (21.0-32.0); CREATININE 1.2 mg/dL (0.55-1.02); Calcium 9.7 mg/dL (8.5-10.1); Chloride 102 mmol/L (98-107); Estimated GFR 54.46 (mL/min/1.73m2); Glucose 116 mg/dL (74-106); Potassium 3.1 mmol/L (3.5-5.1); Sodium 143 mmol/L (136-145); Total Protein 7.9 g/dL (6.4-8.2)
[2023-01-16 12:10] LABS: Hemoglobin A1C 6.1 % (<5.7)
[2023-01-16 12:17] LABS: Calculated LDL 117 mg/dL (<100); Cholesterol 186 mg/dL (<200); HDL Cholesterol 46 mg/dL (40-60); Triglyceride 118 mg/dL (<150)
== END 2023-01-16 12:15 | disposition home or self-care (01) ==
LOC: LBO 12:16
PROVIDERS: PCP Nurse Practitioner Family; Visit Provider Physician Assistant
DX: R51.9 Headache, unspecified (principal); R42 Dizziness and giddiness; I10 Essential (primary) hypertension; R79.89 Other specified abnormal findings of blood chemistry; E66.01 Morbid (severe) obesity due to excess calories; Z68.42 Body mass index [BMI] 45.0-49.9, adult
CPT/HCPCS: 36415; 80053; 80061; 82565; 83036; 84132; 84443; 85025

== ENCOUNTER → 2023-10-10 02:05 | Outpatient (CLI) | payer SELFPAY ==
--- NOTE | 2023-10-10 15:20 | DI.MAMMO_ITS ---
Exam(s) MAMMO SCREENING EXAM: MAMMO SCREENING CLINICAL HISTORY: screening. TECHNIQUE: Bilateral full field digital CC and MLO mammographic images were obtained with 3D tomosyn thesis and utilizing computer aided detection (CAD). COMPARISON: Prior mammograms were reviewed. Most recent was 2017. FINDINGS: There few nodules noted bilaterally in the breasts which were not evident in 2017. There are least 3 nodules and 2 nodules in the right breast. There are no new spiculated masses nor malignant appearing microcalcification groups. There is no significant architectural distortion nor skin thickening-retraction. IMPRESSION: Compared to the most recent mammogram of 2017 there are multiple new bilateral noncalcified small nod ules in both breasts. Spot compression views and bilateral breast ultrasound recommended. BI-RADS Category 0 - Assessment Incomplete: Need additional imaging evaluation Breast Density - Category B - Scattered areas of fibroglandular density Breast density Category C or D implies that the patient has dense breast tissue. Dense breast tissue can make it harder to find cancer on a mammogram. Dense breast tissue is also associated with an incr eased risk of breast cancer. This information about the result of the mammogram report was provided to the patient to raise their awareness. Use this report when you speak with the patient about their risks for breast cancer, which includes their family history. At that time, you may recommend additional screening tests (Ultrasoun d or MRI) as these tests may add significant information. A negative radiographic report should not delay biopsy if a dominant or clinically suspicious mass is present. Up to ten percent of cancers are not identified on mammography. A negative report may reinforce clinical impression. Adenosis and dense breasts may obscure an underlying neoplasm. False positive reports average 6 to 10%. Patient will receive a letter notifying them of these results.
== END ==
PROVIDERS: PCP Nurse Practitioner Family; Visit Provider Obstetrics & Gynecology
DX: Z12.31 Encounter for screening mammogram for malignant neoplasm of breast (principal); R92.8 Other abnormal and inconclusive findings on diagnostic imaging of breast
CPT/HCPCS: 77063; 77067

== ENCOUNTER → 2023-10-18 01:27 | Outpatient (CLI) | payer SELFPAY ==
--- NOTE | 2023-10-18 | DI.US_ITS ---
Exam(s) US BREAST LT COMPLETE US BREAST RT COMPLETE MG MAMMO SCREEN CALL BACK BI EXAM: MG MAMMO SCREEN CALL BACK BI and bilateral complete breast ultrasound. CLINICAL HISTORY: F/U MAMMO, R92.8, MULT NEW SMALL BILAT NODULES. TECHNIQUE: Craniocaudal and mediolateral oblique Full Field Digital Mammography views of the bilater al breast with Computer Aided Diagnosis followed by Tomosynthesis and bilateral breast ultrasound. COMPARISON: US US BREAST LT COMPLETE from 10/18/2023 US US BREAST RT COMPLETE from 10/18/2023 FINDINGS: Mammography/Tomosynthesis: Masses/Architectural Distortion: There are persistent well-circumscribed nodules bilaterally which ar e unchanged compared to the mammogram from 10/10/2023. No areas of architectural distortion are presen t. Microcalcifictions: No suspicious pleomorphic-type are seen. Skin Thickening/Nipple Retraction: None. Bilateral complete breast US: Echotexture: Normal appearance of the glandular tissue. Shadowing: No suspicious foci. Cyst: In the left breast at 2 o'clock 1 cm from the nipple, there is a cluster of small cysts present . There is also a simple cysts seen at the 10 o'clock position of the left breast 4 cm from the nipp le. These would appear to correspond to the mammographic abnormalities. At the 9 o'clock position o f the right breast 2 cm from the nipple, there is a 0.4 x 0.5 cm simple cyst. This would appear to c orrespond to the mammographic abnormality. Solid lesions: None seen. Ductal dilation: None. IMPRESSION: 1. No definite evidence for malignancy. Bilateral breast cysts. 2. A six-month follow-up bilateral mammogram is requested for re-evaluation. 3. The findings were discussed with the patient on the date of the examination. BI-RADS Category 3 - 6 month - Probably Benign Finding: Recommend follow-up imaging in 6 months Breast Density - Category B - Scattered areas of fibroglandular density Breast density Category C or D implies that the patient has dense breast tissue. Dense breast tissue can make it harder to find cancer on a mammogram. Dense breast tissue is also associated with an incr eased risk of breast cancer. This information about the result of the mammogram report was provided to the patient to raise their awareness. Use this report when you speak with the patient about their risks for breast cancer, which includes their family history. At that time, you may recommend additional screening tests (Ultrasoun d or MRI) as these tests may add significant information. A negative radiographic report should not delay biopsy if a dominant or clinically suspicious mass is present. Up to ten percent of cancers are not identified on mammography. A negative report may reinforce clinical impression. Adenosis and dense breasts may obscure an underlying neoplasm. False positive reports average 6 to 10%. Patient will receive a letter notifying them of these results.
== END ==
PROVIDERS: PCP Nurse Practitioner Family; Visit Provider Obstetrics & Gynecology
DX: N60.02 Solitary cyst of left breast (principal); Z12.31 Encounter for screening mammogram for malignant neoplasm of breast
CPT/HCPCS: 76642; 77063; 77067

== ENCOUNTER → 2024-04-21 05:01 | Outpatient (CLI) | payer SELFPAY ==
--- NOTE | 2024-04-21 06:45 | DI.MAMMO_ITS ---
Exam(s) MAMMO DIAGNOSTIC BI EXAM: MAMMO DIAGNOSTIC BI CLINICAL HISTORY: 6 MO F/U,BILAT BREAST CYSTS TECHNIQUE: Mammograms were interpreted according to the usual protocol including computer analysis w [employer] CAD system, tomosynthesis and C-view imaging. COMPARISON: October 2023 mammogram and bilateral ultrasound. Mammograms 2017. FINDINGS: The breasts are composed of mainly fatty density , Breast Density category A. No suspicious masses or suspicious microcalcifications are seen. There are stable areas of nodularit y bilaterally. No skin thickening or abnormal axillary lymph nodes are seen. There has been no significant change from prior exams. IMPRESSION: BI-RADS Category 2 - Benign Findings mammogram Yearly screening mammography is recommended, 1 year from now. Breast Density - Category A, fatty density. A negative radiographic report should not delay biopsy if a dominant or clinically suspicious mass is present. Up to ten percent of cancers are not identified on mammography. A negative report may reinforce clinical impression. Adenosis and dense breasts may obscure an underlying neoplasm. False positive reports average 6 to 10%. Patient will receive a letter notifying them of these results.
== END ==
PROVIDERS: PCP Nurse Practitioner Family; Visit Provider Obstetrics & Gynecology
DX: R92.8 Other abnormal and inconclusive findings on diagnostic imaging of breast (principal); Z12.31 Encounter for screening mammogram for malignant neoplasm of breast
CPT/HCPCS: 77062; 77066; G0279

== ENCOUNTER 2024-06-18 08:56 | Outpatient (REF) | payer SELFPAY | END 2024-06-18 08:57 | disposition home or self-care (01) | LOC: LBN 08:56 | PROVIDERS: PCP Nurse Practitioner Family; Visit Provider Obstetrics & Gynecology Gynecology | DX: R30.0 Dysuria (principal); R82.89 Other abnormal findings on cytological and histological examination of urine; B96.29 Other Escherichia coli [E. coli] as the cause of diseases classified elsewhere | CPT/HCPCS: 87077; 87086; 87186 ==

== ENCOUNTER 2024-11-21 00:22 | Outpatient (CLI) | payer SELFPAY ==
--- NOTE | 2024-11-21 06:15 | DI.US_ITS ---
APPROVED REPORT EXAM: Comprehensive 2D, Doppler, and color-flow Echocardiogram Patient Location: Out-Patient Laborer Livestock: Lillian Acosta RDCS (AE) Indications: bilateral lower ext edema Other Information Study Quality: Poor. Technically limited study due to body habitus. Conclusion Technically difficult and suboptimal study Mild concentric left ventricular hypertrophy. Ejection fraction is 60%. Wall motion is normal Normal right ventricular size and function Both atria are normal in size Mildly dilated ascending aorta, 3.4 cm Wall motion Left Ventricle The left ventricle is normal size. The left ventricular systolic function is normal. The left ventric ular ejection fraction is within the normal range. Mild concentric left ventricular hypertrophy. Ther e is normal LV segmental wall motion. There is no ventricular septal defect visualized. LVEF is 59%. Right Ventricle Right ventricle is grossly normal in size. Right ventricular systolic function is grossly normal. Atria The left atrium size is normal. The right atrium size is normal. The interatrial septum is intact wit h no evidence for an atrial septal defect. Aortic Valve The aortic valve is normal in structure. Aortic valve is trileaflet. There is no aortic valvular sten osis. No aortic regurgitation is present. Mitral Valve The mitral valve is normal in structure. No evidence of mitral valve stenosis. Trace mitral regurgita tion. Tricuspid Valve The tricuspid valve is normal in structure. There is no tricuspid valve stenosis. Trace tricuspid reg urgitation. Unable to assess PA pressure. Pulmonic Valve The pulmonary valve is normal in structure. There is no pulmonic valvular stenosis. There is no pulmo lala valvular regurgitation. Great Vessels The aortic root is normal in size. The ascending aorta is mildly dilated. Aortic arch is normal in ca liber. IVC is normal in size and collapses >50% with inspiration. Pericardium There is no pericardial effusion. 2D Dimensions IVSD d PLAX 1.10 cm F: 0.6-1.0 Ao Root d 3.34 cm F: 2.7 - 3.3 LVPW d PLAX 1.10 cm F: 0.6 - 1.0 Ao Asc Diam d 3.40 cm F: 2.3 - 3.1 LVID d PLAX 4.70 cm F: 3.8 - 5.2 LVDs 3.20 cm F: 2.2 - 3.5 LV EF Teichholz 58.2 % FS 30.66 % LV EDV (Teich) 101.9 mL LV ESV (Teich) 42.6 mL M-Mode TAPSE 2.30 cm (M/F) >1.7 Auto EF LV EDV A4C 121.9 mL LV EDV A2C 90.4 mL LV EDV BP 106.1 mL LV ESV A4C 48.9 mL LV ESV A2C 38.0 mL LV ESV BP 43.8 mL LVEF(%) A4C 59.9 % LVEF(%) A2C 58.0 % LVEF(%) BP 58.8 % LV SV A4C 73.0 ml LV SV A2C 52.4 ml LV SV BP 62.4 ml LV CO A4C 4.4 L/min LV CO A2C 3.2 L/min LV CO BP 3.8 L/min HR A4C 60.81 BPM HR A2C 60.71 BPM LV EDV Index (BP) LA Volume LA Length A4C 5.5 cm LA Length A2C 5.5 cm LA Area A4C s 18.28 cm2 LA Area A2C s 20.54 cm2 LA Vol A4C A-L 51.74 mL LA Vol A2C A-L 64.78 mL LA Vol Biplane A-L 58.1 mL LA Vol/BSA A4C A-L LA Vol/BSA A2C A-L LA Vol/BSA BP A-L 24.7 mL/m2 LA Vol A4C MOD 47.0 mL LA Vol A2C MOD 60.9 mL LA Vol BP MOD 53.2 mL RA Volume RA Area A4C 12.8 cm2 RA ESV A4C (A-L) 33.4mL RA Vol/BSA A4C A-L RA Length A4C 4.2 cm RA ESV A4C (MOD) 32.7mL LV Diastology MV E' medial 0.095 (>0.07 m/s) MV E Vmax 1.02 (0.4-1.3 m/s) MV E/E' MED 10.73 (<14) MV A Vmax 0.75 (0.4-1.3 m/s) MV E' lateral 0.095 (>0.1 m/s) E/A Ratio 1.4 MV E/E' LAT 10.73 (<14) MV E' Average 0.095 m/s MV E/E'(average) 10.73 Aortic Valve AoV Vmax 1.12 m/s LVOT Vmax 1.02 m/s AoV Peak Grad 5.1 mmHg LVOT Peak Grad 4.1 mmHg AoV Area (Vmax) 2.84 cm2 LVOT VTI 0.217 m AoV VTI 0.270 m LVOT Mean Grad 2.2 mmHg AoV Mean Gonzalo. 0.78 m/s LVOT SV 68.08 mL AoV Mean Grad 2.8 mmHg LVOT Diam s 2.00 cm AoV Area (VTI) 2.52 cm2 AV Regurg Peak Gr. 5.06 mmHg Velocity Ratio 0.91 Mitral Valve MV DT 183 (160-240 msec) MV Vmax TIPS 0.88 m/s MV Mean Grad 1.0 (<2mmHg) MV VTI 0.283 m Pulmonary Valve PV Vmax 0.68 (0.5-1.5 m/s) RVOT Vmax 0.54 m/s PV Peak Grad 1.9 mmHg RVOT Peak Gr. 1.2 mmHg PV Mean Gonzalo 0.50 m/s RVOT VTI 0.141 m PV Mean Grad 1.2 mmHg RVOT Mean Gr. 0.6 mmHg Tricuspid Valve TV S' 0.11 m/s
== END 2024-11-21 00:42 ==
LOC: DI 00:23
PROVIDERS: PCP Nurse Practitioner Family; Visit Provider Nurse Practitioner Family
DX: I51.7 Cardiomegaly (principal)
CPT/HCPCS: 93306

== ENCOUNTER 2024-11-21 08:58 | Outpatient (CLI) | payer SELFPAY ==
[2024-11-21 09:18] LABS: Hemoglobin A1C 5.5 % (<5.7)
[2024-11-21 09:29] LABS: ALT 59 U/L (14-59); AST 38 U/L (15-37); Albumin 3.4 g/dL (3.4-5.0); Alkaline Phosphatase 134 U/L (46-116); Anion Gap 7.8 mmol/L (3-11); BUN 17 mg/dL (7-18); Bilirubin, Total 0.58 mg/dL (0.2-1.0); CO2 32.2 mmol/L (21.0-32.0); Calcium 9.5 mg/dL (8.5-10.1); Calculated LDL 107 mg/dL (<100); Chloride 105 mmol/L (98-107); Cholesterol 177 mg/dL (<200); Estimated GFR 67.36 (mL/min/1.73m2); Glucose 91 mg/dL (74-106); HDL Cholesterol 51 mg/dL (40-60); Potassium 3.5 mmol/L (3.5-5.1); Sodium 145 mmol/L (136-145); Total Protein 7.7 g/dL (6.4-8.2); Triglyceride 97 mg/dL (<150)
== END 2024-11-21 08:59 | disposition home or self-care (01) ==
LOC: LBO 08:59
PROVIDERS: PCP Nurse Practitioner Family; Visit Provider Nurse Practitioner Family
DX: Z13.220 Encounter for screening for lipoid disorders (principal); N18.30 Chronic kidney disease, stage 3 unspecified; Z13.1 Encounter for screening for diabetes mellitus
CPT/HCPCS: 36415; 80053; 80061; 83036

== ENCOUNTER 2025-01-29 08:27 | Day surgery (SDC) | payer MEDICAID, SELFPAY ==
[2025-01-29 08:30] VITALS: BP 132/72; PULSE 69; RESP 16; TEMP 36.4; O2SAT 97
[2025-01-29] MEDS: Lactated Ringers 1,000 ML 80 ML IV (09:15)
--- NOTE | 2025-01-29 10:02 | W.COLOREPORT ---
Date of service: 01/29/25 Time of Service: 10:02 Colonoscopy Report Procedure Description: Procedures performed: 1. Colonoscopy Preoperative diagnosis: Surveillance colonoscopy Postoperative diagnosis: Grade 1 internal hemorrhoids Surgeon: Eduarda Harvey MD Indication for procedure: The patient is a 54-year-old woman with a previously?normal colonoscopy but her mother has had a history of multiple tubulovillous adenomas. She has no symptoms of concern. Findings: Normal terminal ileum. No polyps anywhere. No diverticular disease. No inflammatory conditions anywhere. Very healthy?appearing colon. Excellent prep. Grade 1 internal hemorrhoids present on retroflexion. Surveillance interval/follow-up: 5 years because of the family history. (Mother with tubulovillous adenomas) Specimens: none Estimated blood loss: Minimal Complications: None Quality of prep: Excellent Procedure in detail: The patient gave written consent and was in agreement with the indications, the potential risks as well as the benefits of the procedure. They were taken to the endoscopy suite and laid in the left lateral decubitus position. A timeout was performed and anesthesia was administered which was tolerated well. I started the procedure. Digital rectal and visual examination was performed and grossly within normal limits. I did not appreciate any obvious perianal pathology(remote history of a recurrent perineal cyst) A well-lubricated flexible colonoscope was then introduced and passed without any notable difficulty all the way to the cecum identified by the ileocecal valve and the appendiceal orifice. The terminal ileum was briefly intubated and looked normal visually. The scope was then slowly withdrawn with the above-noted findings. The patient tolerated the procedure well and was taken to the PACU in hemodynamically stable condition.
--- NOTE | 2025-01-29 10:03 | W.ANESPRE ---
General Info Date of Service Date Performed: 01/29/25 Height: 5 ft 2.5 in Weight: 139.7 kg Body Mass Index (BMI): 55.4 Surgical Procedure: Operation Date: 01/29/25 09:35 Proposed Procedure Side Surgeon p Ephraim Harvey MD Meds Allergies and Home Medications Allergies Allergy/AdvReac Type Severity Reaction Status Date / Time amoxicillin AdvReac Mild N/V Verified 01/29/25 08:53 doxycycline AdvReac Mild N/V Verified 01/29/25 08:53 Home Medication ?Medication ?Instructions ?Recorded levonorgestrel 21 mcg/24 hr (up to 1 ea intra-articular DIRECTED 12/13/16 8 years) 52 mg intrauterine device ##1 (Mirena) losartan 100 1 tab PO DAILY #90 tabs 11/13/24 mg-hydrochlorothiazide 12.5 mg tablet torsemide 20 mg tablet 20 mg PO DAILY #90 tabs 11/27/24 Current Visit Medications: Current Medications Generic Name Dose Route Start Last Admin Trade Name Freq PRN Reason Stop Dose Admin Ringer's Solution 1,000 mls @ 80 mls/hr 01/29/25 06:00 01/29/25 09:15 IV 01/29/25 23:59 80 mls/hr INFUSION NAMITA Administration IV Miscellaneous Supplies 1 each 01/29/25 06:00 Iv Access IV 01/29/25 23:59 DIRECTED NAMITA Sodium Chloride 0 ml 01/29/25 06:00 Normal Saline Flush 10 Ml Syr IV 01/29/25 23:59 PRN PRN Sodium Chloride 0 ml 01/29/25 06:00 Normal Saline 10 Ml Vial IJ 01/29/25 23:59 DIRECTED PRN Sterile Water 0 ml 01/29/25 06:00 Water,Injection,Sterile 10 Ml Vial IJ 01/29/25 23:59 DIRECTED PRN PFSH Active Problems Active Problems: Problem Status Onset Code Stage 3 chronic kidney disease Acute N18.30 Deep dyspareunia Acute N94.12 Dyspnea on exertion Acute R06.00 Chest pain Acute R07.9 Bilateral lower extremity edema Acute R60.0 Obesity Chronic E66.9 Hypertension Chronic I10 Tobacco use Acute Z72.0 Xanthelasma of eyelid, bilateral Acute H02.63, H02.66 Medical History Medical History UTI (urinary tract infection) Ganglion cyst IUD surveillance (12/13/16) Mirena Rectovaginal fistula Surgical History Surgical History History of colonoscopy section Tobacco Smoking/Tobacco Use Status: Current every day Tobacco Type: cigarettes Passive smoking exposure: Yes Second hand exposure: Yes Alcohol Alcohol Intake: current Alcohol intake frequency: a few times a month Alcohol type: beer and wine Substance Use Substance use: Never Substance use type: does not use Prental History History 4 Para 2 Hx # Term Pregnancies Multiple births Hx # Pregnancies Ectopic pregnancies AB induced Hx Number of Living Children AB spontaneous Vital Signs and Lab Results Vital Signs Most Recent Vital Signs in EMR: Most Recent Vital Signs Temp Pulse Resp BP Pulse Ox 36.4 C L 69 16 132/72 97 01/29/25 08:30 01/29/25 08:30 01/29/25 08:30 01/29/25 08:30 01/29/25 08:30 Lab Results Blood Type / Crossmatch: No Data to Display Complete Blood Count: No Data to Display Complete Metabolic Panel: No Data to Display Liver Function Panel: No Data to Display Coagulation Panel: No Data to Display Cardiac Panel: No Data to Display Arterial Blood Gas: No Data to Display Venous Blood Gas: No Data to Display Pancreas Panel: No Data to Display Thyroid Panel: No Data to Display Infectious Disease: No Data to Display Blood Cultures: No Data to Display Toxicology Panel: No Data to Display Panel: No Data to Display Imaging and Studies Imaging and Studies Study information below may be from another EMR and interpreted by another provider. Please see original notes in EMR for more complete details. EKG Summary: 12/15/21: Exam: Resting ECG Reason for Exam: sob Patient Location: E HR:88 bpm ECG Measurements Heart Rate 88 AXIS OK 137 P 45 QRSd 97 QRS 56 QT 388 T20 QTc 471 Conclusion Sinus rhythm...normal P axis, V-rate 60- 99 Inferior infarct, old...Q >35mS, II III aVF Physician: no stemi, unchanged from EKG on 10/07/20 I have reviewed and interpreted ECG and agree with software generated interpretation. I have reviewed and I agree with the emergency room physician's ECG interpretation. Stress Test Summary: 05/25/22: Stress ECG Conclusion 1. Resting electrocardiogram showed minor nondiagnostic ST abnormalities 2. Patient underwent testing using combination of low-level exercise and pharmacologic stress 3. Peak heart rate achieved was 76% of predicted for age 4. Maximal workload was 4.64 METS 5. Electrocardiographic portion of the test was nondiagnostic due to inadequate heart rate 6. See MPI report Echocardiogram Summary: 11/21/24: Conclusion Technically difficult and suboptimal study Mild concentric left ventricular hypertrophy. Ejection fraction is 60%. Wall motion is normal Normal right ventricular size and function Both atria are normal in size Mildly dilated ascending aorta, 3.4 cm Anesthesia Assessment and Plan Anesthesia History Personal History: No History of Anesthesia Complications Family History: No Family History of Anesthesia Complications Exercise Tolerance Exercise Tolerance: Metabolic Equivalents>4 Cardiac & Pulmonary Exam Cardiac Exam: Normal S1/S2 Heart Sounds Pulmonary Exam: Clear Bilateral Breath Sounds Implantable Cardiac Device Does patient have a Pacemaker or an ICD?: No Airway Exam Known Difficult Airway: No Mallampati Class: 2 Mouth Opening: Normal (> 3cm) Thyromental Distance: Greater than 3 cm Neck Range of Motion: Full ROM Neck Circumference: Thick Teeth Condition: Normal Dentition ASA Classification ASA Score: ASA 3 Emergency Case?: No NPO Status NPO Status: NPO Clears >2 hours, Solids >8 hours Status Status: Not Relevant due to Medical History Anesthesia Plan Resuscitation Status: Full Code Anesthesia Technique: General Anesthesia Airway Planned: Natural Airway Monitors Used: Standard Monitors
--- NOTE | 2025-01-29 10:03 | W.PM.DSUDISC ---
Date of service: 01/29/25 Discharge Plan Disposition Patient Disposition: Home Condition: Good Discharge Details Attending Provider: Kaleb Harvey Primary Care Provider: Richard Burciaga Home Meds and New Rx's Prescriptions: No Action torsemide 20 mg tablet 20 mg PO DAILY Qty: 90 3RF losartan-hydrochlorothiazide 100-12.5 mg tablet 1 tab PO DAILY Qty: 90 3RF Mirena 1 EACH intrauterine device 1 ea IU DIRECTED Qty: 1 Discharge Instructions Additional Instructions: FINDINGS: No polyps. Everything looks very normal. Because of your family history I recommend that you repeat a colonoscopy in 5 years however. Activity:: Activity as Tolerated Diet:: As Tolerated Discharge Orders Discharge Orders: Discharge Order (Routine); Ordered 01/29/25 Ordered By: Kaleb Harvey
[2025-01-29 10:05] VITALS: BMI 55.4
[2025-01-29 10:33] VITALS: BP 104/70; PULSE 68; RESP 16; TEMP 36.4; O2SAT 98
[2025-01-29 11:04] VITALS: BP 131/95; PULSE 63; RESP 20; TEMP 36.3; O2SAT 97
--- NOTE | 2025-01-29 11:22 | W.ANESPOSTOP ---
Postoperative Evaluation Date, Time and Location Date Performed: 01/29/25 Time Performed: 10:15 Patient Location: Day Surgery Unit Vital Signs Most Recent Imported Vital Signs: Most Recent Vital Signs Temp Pulse Resp BP Pulse Ox 36.3 C L 63 20 131/95 H 97 01/29/25 11:04 01/29/25 11:04 01/29/25 11:04 01/29/25 11:04 01/29/25 11:04 Pain Score Most Recent Pain Score: Most Recent Pain Score Pain Level 0 01/29/25 11:04 Assessment Mental Status: Awake (Alert & Oriented to Patient Baseline) Airway and Respiratory Function: Patent airway with normal (patient baseline) respiratory exam Cardiovascular Function: Hemodynamically Stable Hydration Status: Adequately Hydrated Nausea & Vomiting: No Nausea or Vomiting Pain: Pt. Denies Any Pain Peripheral Nerve Block: Patient did not receive a nerve block
== END 2025-01-29 11:30 | disposition home or self-care (01) ==
PROVIDERS: PCP Nurse Practitioner Family; Visit Provider Student in an Organized Health Care Education/Training Program
PROC: 0DJD8ZZ Inspection of Lower Intestinal Tract, Via Natural or Artificial Opening Endoscopic (ICD-10-PCS; CPT 45378; principal; 2025-01-29 09:30)
DX: Z12.11 Encounter for screening for malignant neoplasm of colon (principal); K64.0 First degree hemorrhoids; Z83.710 Family history of adenomatous and serrated polyps
CPT/HCPCS: 45378; 81025; J2003; J2704